=== PATIENT | female | born 1970 | race American Indian/Alaskan Native ===

== ENCOUNTER 2021-05-17 23:01 | Emergency (ER) | payer OTHER, SELFPAY ==
[2021-05-17 23:05] VITALS: BP 156/89; PULSE 140; RESP 22; TEMP 36.7; O2SAT 97
--- NOTE | 2021-05-17 23:08 | DI.RAD.S_ITS ---
PROCEDURE: XR CHEST 1V INDICATIONS: SUSPECTED SEPSIS TECHNIQUE: One view of the chest was acquired. COMPARISON: None. FINDINGS: Surgical changes and devices: None. Lungs and pleura: Mild streaky opacity at the right lung base. No pleural effusions or pneumothorax. Mediastinum: Mediastinal contours appear normal. Heart size is normal. Bones and chest wall: No suspicious bony lesions. Overlying soft tissues appear unremarkable. IMPRESSION: Mild streaky opacity at the right lung base. This could represent pneumonia, aspiration, or atelectasis. Dictated by: Ladarius Huntley M.D. on 05/17/2021 at 23:40 Approved by: Ladarius Huntley M.D. on 05/17/2021 at 23:41
--- NOTE | 2021-05-17 23:31 | ED_ITS ---
HPI - Fever General Chief Complaint: Fever Stated Complaint: TIRED BODY ACHES HEADACHES Time Seen by Provider: 05/17/21 23:22 Source: patient Mode of arrival: Ambulatory Limitations: no limitations History of Present Illness HPI Narrative: This is a 51-year-old vaccinated for coronavirus female with complaint of hot and cold sensation with sweats, some shortness of breath than bilateral rib pain. Patient denies any anterior chest pain. She denies any nausea or vomiting. She has had some soft but denies any bright red blood or melena. She denies any abdominal or flank pain. She still a bit of headache and some muscle aches as well. She denies dysuria urgency or frequency she denies rash or skin changes. She denies any past medical issues she takes vitamin-D, calcium and a daily allergy pill she had cholecystectomy in approximately 2014. Denies any allergies to medications. No tobacco, alcohol or illicit. She follows at the [facility] with Dr. Schmitz. She had her COVID vaccine in August. Related Data Previous Rx's Medication Instructions Recorded levofloxacin 750 mg tablet 750 mg PO DAILY 7 Days #7 tab 05/18/21 Allergies Allergy/AdvReac Type Severity Reaction Status Date / Time No Known Allergies Allergy Uncoded 11/22/17 12:13 Review of Systems Review of Systems ROS Unobtainable: All systems reviewed & are unremarkable except as noted in HPI and below Patient History Social History Smoking Status: Never smoker Smoking Status: Never smoker Exam Narrative Exam Narrative: GEN: well nourished, well appearing female, alert and oriented x 3, patient appears to be in mild distress. Patient is mildly diaphoretic. HEENT: Atraumatic, pupils are equal round reactive to light, extraocular movements are intact, nares are clear. No meningeal signs. HEART: Tachycardic but Regular rate and rhythm without murmur, clicks, rubs. Pulses are equal in upper and lower extremities. No JVD. No swelling bilateral lower extremities. LUNGS:Lungs clear to auscultation, no wheezes, rales, crackles, chest moves symmetrically, no tachypnea or accessory muscle use. ABD:bowel sounds normal, soft, non-tender, no guarding, rebound, rigidity, no masses noted, no hepatosplenomegaly :No CVA tenderness MSCL: Non-tender, full range of motion, normal gait NEURO:CN 2-12 intact, sensation normal SKIN: Rash, erythema or skin changes. Initial Vital Signs Initial Vital Signs: Vital Signs Temperature 98.0 F 05/17/21 23:05 Pulse Rate 140 H 05/17/21 23:05 Respiratory Rate 22 05/17/21 23:05 Blood Pressure 156/89 H 05/17/21 23:05 Pulse Oximetry 97 05/17/21 23:05 Scores qSOFA Altered Mental Status (GCS <15): No Respiratory rate greater than/equal to 22: Yes Systolic blood pressure less than or equal to 100: No qSOFA Total: 1 0-1 Not High Risk 1-3 High risk Course Orders Ordered: ED Orders 05/17/21 23:08 XR chest 1V Stat EKG-12 Lead Stat RT Consult Eval and Treat Now 05/17/21 23:30 COVID19 -Nasal swab/Pre-Proc Stat Complete Blood Count AUTO DIFF Stat Comprehensive Metabolic Panel Stat D Dimer Stat Lactate (Lactic Acid) Stat Lipase Stat NT-proBNP (BNP-Adult 18+) Stat Procalcitonin Stat Troponin & CK Cardiac Panel Stat Urine Microscopic Stat 05/17/21 23:47 Blood Culture Stat 05/18/21 00:07 CT angio chest PE protocol Stat 05/18/21 00:20 Urine Culture Stat 05/18/21 01:03 COVID19 - ADMIT (DOCUMENTATION SPECIALIST swab/PCR) Stat Discontinued Medications Sodium Chloride (Normal Saline 0.9%) 1,000 mls @ 1,000 mls/hr IV BOLUS ONE Stop: 05/18/21 00:07 Last Admin: 05/18/21 00:55 Dose: Not Given Documented by: LUIS MIGUEL Sodium Chloride (Normal Saline 0.9%) 2,177.25 mls @ 725.75 mls/hr 30 ml/kg infuse over 3 hr (2177.25 ml) IV NOW ONE Stop: 05/18/21 02:29 Last Infusion: 05/18/21 02:53 Dose: 0 mls/hr Documented by: LUIS MIGUEL Admin: 05/17/21 23:51 Dose: 725.75 mls/hr Documented by: GRETA Ceftriaxone Sodium 2,000 mg/ (Sodium Chloride) 100 mls @ 200 mls/hr IV NOW ONE Stop: 05/17/21 23:55 Last Infusion: 05/18/21 00:54 Dose: 0 mls/hr Documented by: LUIS MIGUEL Admin: 05/18/21 00:04 Dose: 200 mls/hr Documented by: LUIS MIGUEL Levofloxacin (Levaquin) 750 mg in 150 mls @ 100 mls/hr IV NOW ONE Stop: 05/18/21 01:23 Last Infusion: 05/18/21 02:42 Dose: 0 mls/hr Documented by: LUIS MIGUEL Infusion: 05/18/21 00:54 Dose: 100 mls/hr Documented by: LUIS MIGUEL Infusion: 05/18/21 00:45 Dose: 0 mls/hr Documented by: LUIS MIGUEL Admin: 05/18/21 00:44 Dose: 100 mls/hr Documented by: LUIS MIGUEL Vital Signs Vital signs: Vital Signs - 8 hr 05/17/21 23:05 05/18/21 00:10 05/18/21 00:32 Temperature 98.0 F Pulse Rate 140 H 129 H 128 H Respiratory Rate 22 Blood Pressure 156/89 H Pulse Oximetry 97 96 95 05/18/21 01:00 05/18/21 01:30 05/18/21 02:00 Temperature Pulse Rate 115 H 108 H 107 H Respiratory Rate 20 20 Blood Pressure Pulse Oximetry 98 96 98 05/18/21 02:30 05/18/21 03:00 05/18/21 03:24 Temperature 97.9 F Pulse Rate 101 H 98 H Respiratory Rate 21 21 Blood Pressure 151/91 H Pulse Oximetry 99 99 MDM - Fever Lab Data Result diagrams: 05/17/21 23:30 05/17/21 23:30 Labs: Lab Results 05/17/21 05/17/21 05/17/21 Range/Units 23:30 23:30 23:30 WBC 11.0 (4.5-11.0) X10^3/uL RBC 4.50 (4.0-5.2) X10^6/uL Hgb 11.9 L (12.0-16.0) g/dL Hct 35.7 L (36-46) % MCV 79.4 L (80-100) fL MCH 26.5 (26-34) PG MCHC 33.4 (30-36) % RDW 13.8 (11.6-14.8) % Plt Count 347 (150-400) X10^3/uL Neut % (Auto) 73.8 (50-75) % Lymph % (Auto) 15.5 L (25-40) % Lipscomb % (Auto) 9.6 (3-14) % Eos % (Auto) 0.6 L (2-4) % Baso % (Auto) 0.5 (0-2) % Neut # (Auto) 8100 H (7518-6276) /uL Lymph # (Auto) 1700 (3083-4735) /uL Lipscomb # (Auto) 1100 H (0-900) /uL Eos # (Auto) 100 (0-450) /uL Baso # (Auto) 100 (0-100) /uL D-Dimer (<230) ng/mL Sodium 139 (137-145) mmol/L Potassium 3.5 (3.4-5.1) mmol/L Chloride 108 H (98-107) mmol/L Carbon Dioxide 23 (22-32) mmol/L BUN 16 (7-17) mg/dL Creatinine 1.11 H (0.52-1.04) mg/dL Estimated GFR 51.6 L (>60) mL/min BUN/Creatinine Ratio 14.4 (6-22) Glucose 101 H (70-100) mg/dL Lactate 0.7 (0.7-2.1) mmol/L Calcium 8.7 (8.4-10.2) mg/dL Total Bilirubin 0.9 (0.2-1.3) mg/dL AST 28 (14-36) IU/L ALT 18 (<35) IU/L Alkaline Phosphatase 142 H (38-126) U/L Total Creatine Kinase (30-135) U/L CK-MB (CK-2) CK-MB (CK-2) Rel Index Troponin I (0.01-0.034) ng/mL NT-Pro-B Natriuret Pep (<125) pg/mL Total Protein 9.3 H (6.3-8.2) g/dL Albumin 4.2 (3.5-5.0) g/dL Globulin 5.1 H (1.7-4.1) g/dL Albumin/Globulin Ratio 0.8 L (1.0-2.8) Lipase 348 H (23-300) U/L Procalcitonin 0.31 (<0.5) ng/mL Urine RBC (0-5/HPF) Urine WBC (0-5/HPF) Ur Squamous Epith Cells (0-5/HPF) Urine Bacteria (None) Ur Culture Indicated? SARS-CoV-2 (PCR) (Negative) 05/17/21 05/17/21 05/17/21 Range/Units 23:30 23:30 23:30 WBC (4.5-11.0) X10^3/uL RBC (4.0-5.2) X10^6/uL Hgb (12.0-16.0) g/dL Hct (36-46) % MCV (80-100) fL MCH (26-34) PG MCHC (30-36) % RDW (11.6-14.8) % Plt Count (150-400) X10^3/uL Neut % (Auto) (50-75) % Lymph % (Auto) (25-40) % Lipscomb % (Auto) (3-14) % Eos % (Auto) (2-4) % Baso % (Auto) (0-2) % Neut # (Auto) (8037-4698) /uL Lymph # (Auto) (9328-7197) /uL Lipscomb # (Auto) (0-900) /uL Eos # (Auto) (0-450) /uL Baso # (Auto) (0-100) /uL D-Dimer 4902 H (<230) ng/mL Sodium (137-145) mmol/L Potassium (3.4-5.1) mmol/L Chloride (98-107) mmol/L Carbon Dioxide (22-32) mmol/L BUN (7-17) mg/dL Creatinine (0.52-1.04) mg/dL Estimated GFR (>60) mL/min BUN/Creatinine Ratio (6-22) Glucose (70-100) mg/dL Lactate (0.7-2.1) mmol/L Calcium (8.4-10.2) mg/dL Total Bilirubin (0.2-1.3) mg/dL AST (14-36) IU/L ALT (<35) IU/L Alkaline Phosphatase (38-126) U/L Total Creatine Kinase 26 L (30-135) U/L CK-MB (CK-2) TNP CK-MB (CK-2) Rel Index TNP Troponin I < 0.012 (0.01-0.034) ng/mL NT-Pro-B Natriuret Pep 140 H (<125) pg/mL Total Protein (6.3-8.2) g/dL Albumin (3.5-5.0) g/dL Globulin (1.7-4.1) g/dL Albumin/Globulin Ratio (1.0-2.8) Lipase (23-300) U/L Procalcitonin (<0.5) ng/mL Urine RBC (0-5/HPF) Urine WBC (0-5/HPF) Ur Squamous Epith Cells (0-5/HPF) Urine Bacteria (None) Ur Culture Indicated? SARS-CoV-2 (PCR) Negative (Negative) 05/18/21 05/18/21 Range/Units 00:20 01:03 WBC (4.5-11.0) X10^3/uL RBC (4.0-5.2) X10^6/uL Hgb (12.0-16.0) g/dL Hct (36-46) % MCV (80-100) fL MCH (26-34) PG MCHC (30-36) % RDW (11.6-14.8) % Plt Count (150-400) X10^3/uL Neut % (Auto) (50-75) % Lymph % (Auto) (25-40) % Lipscomb % (Auto) (3-14) % Eos % (Auto) (2-4) % Baso % (Auto) (0-2) % Neut # (Auto) (2604-2648) /uL Lymph # (Auto) (0624-2037) /uL Lipscomb # (Auto) (0-900) /uL Eos # (Auto) (0-450) /uL Baso # (Auto) (0-100) /uL D-Dimer (<230) ng/mL Sodium (137-145) mmol/L Potassium (3.4-5.1) mmol/L Chloride (98-107) mmol/L Carbon Dioxide (22-32) mmol/L BUN (7-17) mg/dL Creatinine (0.52-1.04) mg/dL Estimated GFR (>60) mL/min BUN/Creatinine Ratio (6-22) Glucose (70-100) mg/dL Lactate (0.7-2.1) mmol/L Calcium (8.4-10.2) mg/dL Total Bilirubin (0.2-1.3) mg/dL AST (14-36) IU/L ALT (<35) IU/L Alkaline Phosphatase (38-126) U/L Total Creatine Kinase (30-135) U/L CK-MB (CK-2) CK-MB (CK-2) Rel Index Troponin I (0.01-0.034) ng/mL NT-Pro-B Natriuret Pep (<125) pg/mL Total Protein (6.3-8.2) g/dL Albumin (3.5-5.0) g/dL Globulin (1.7-4.1) g/dL Albumin/Globulin Ratio (1.0-2.8) Lipase (23-300) U/L Procalcitonin (<0.5) ng/mL Urine RBC 0-1/hpf (0-5/HPF) Urine WBC 5-10/hpf H (0-5/HPF) Ur Squamous Epith Cells 0-1 /hpf (0-5/HPF) Urine Bacteria Moderate (10-30) H (None) Ur Culture Indicated? Specimen cultured SARS-CoV-2 (PCR) Negative (Negative) Point of Care Testing Test Results Negative Urine Dip Bedside Urine Glucose Negative Bedside Urine Bilirubin - Negative Bedside Urine Ketone - Negative Urine Specific Adrian 1.010 Bedside Urine Occult Blood ++ Bedside Urine pH 7.0 Bedside Urine Protein - Negative Bedside Urine Urobilinogen +/- 1mg Bedside Urine Nitrite - Negative Bedside Urine Leukocytes + 70 Esterase Imaging Data Chest x-ray: Radiologist's Impression: [address] [id number] XRay Report Signed Patient: Ritu Johnson MR#: [id number] : 1970 Acct:[id number] Age/Sex: 51 / F Date of Service: 05/17/21 Loc: ED Accession Number: [id number] ?? Procedure: XR chest 1V Ordering Provider: Rosa Finnegan D.O. PROCEDURE:? XR CHEST 1V ? INDICATIONS:? SUSPECTED SEPSIS ? TECHNIQUE:? One view of the chest was acquired.? ? COMPARISON:? None. ? FINDINGS:? ? Surgical changes and devices:? None.? ? Lungs and pleura:? Mild streaky opacity at the right lung base.? No pleural effusions or pneumothorax.? ? Mediastinum:? Mediastinal contours appear normal.? Heart size is normal.? ? Bones and chest wall:? No suspicious bony lesions.? Overlying soft tissues appear unremarkable.? ? IMPRESSION:? Mild streaky opacity at the right lung base.? ? This could represent pneumonia, aspiration, or atelectasis. ? ? Dictated by: Ladarius Huntley M.D. on 05/17/2021 at 23:40 ? ? Approved by: Ladarius Huntley M.D. on 05/17/2021 at 23:41?? CT scan - chest: Radiologist's Impression: [address] [address] [address] Scan Report Signed Patient: Ritu Johnson MR#: [id number] : 1970 Acct:[id number] Age/Sex: 51 / F Date of Service: 05/18/21 Loc: ED Accession Number: [id number] ?? Procedure: CT angio chest PE protocol Ordering Provider: Rosa Finnegan D.O. PROCEDURE:? CT ANGIO CHEST PE PROTOCOL ? INDICATIONS:? tired, body ache, tachycardia, critical D-dimer ? TECHNIQUE:? After the administration of intravenous contrast, 2 mm thick sections acquired from the pulmonary apices to the posterior costophrenic angles.? 3-dimensional maximum intensity projection (MIP) coronal and sagittal reformats were then acquired through the t horax.? For radiation dose reduction, the following was used:? automated exposure control, adjustment of mA and/or kV according to patient size.? ? COMPARISON:? None. ? FINDINGS:? Image quality:? Excellent.? ? Pulmonary arteries:? Pulmonary arteries are normal in size, and demonstrate no intraluminal filling defects to suggest central pulmonary embolism.? ? Lungs and pleura:? Right upper lobe subpleural medial pulmonary nodule measuring 0.4 cm.? Right upper lobe lateral pulmonary nodule measuring 0.4 cm, (5/60).? A few small pulmonary cysts.? Mild ground-glass opacity most pronounced at the left lower lobe.? No pleural effusions or pneumothorax.? Central and peripheral airways are patent.? ? Mediastinum:? Heart size is normal, without pericardial effusion.? No mediastinal or hilar adenopathy.? Thoracic aorta is normal in caliber and enhancement.? Esophagus is normal in caliber, without hiatal hernia.? ? Bones and chest wall:? No suspicious bony lesions.? Ribs and thoracic spine appear intact throughout.? Right thyroid nodule measuring approximately 1.3 cm, (11/27).? No axillary or supraclavicular adenopathy.? ? Abdomen:? Post cholecystectomy.? Diverticulosis.? Small retroperitoneal nodes.? Suspect 1 cm left adrenal myelolipoma, ().? Visualized upper abdominal solid organs appear normal in the early arterial phase of enhancement.? ? IMPRESSION:? 1. No pulmonary embolism. ? 2. Mild ground-glass opacity most pronounced in the left lower lobe.? This could represent a low-grade infectious/inflammatory etiology.? Atelectasis could have a similar appearance. ? 3. Right thyroid nodule measuring 1.3 cm. Recommend dedicated thyroid ultrasound on a nonemergent basis. ? 4. Suspect incidental 1 cm left adrenal myelolipoma.? Dictated by: Ladarius Huntley M.D. on 05/18/2021 at 0:52 ? ? Approved by: Ladarius Huntley M.D. on 05/18/2021 at 0:59? ECG Data Attestation: I personally reviewed and interpreted this ECG as follows: Prior ECG tracings: not available for review Interpretation: Sinus tachycardia rate of 141 MD 114 QRS 84 and QTC of 453. No acute ST elevation depression appreciated. Patient does appear to have P waves with all QRS. No priors for comparison. MDM Narrative Medical decision making narrative: This is a 51-year-old female comes with complaint of headache, myalgias, sweatiness and hot and cold and is noted to be tachycardic at 140. upon arrival. Patient is persistently in sinus tach which slowly improved after 30 cc/kilos fluid bolus. Her labs are otherwise reassuring the exception of a significant elevated D-dimer.. Chest x-ray shows possible pneumonia. Angio for PE was obtained and shows pneumonia but no PE or other emergent changes. There is notation of a thyroid nodule small pulmonary nodule and adrenal nodule and this was all shared with the patient. Patient has continued to improve and had reassuring vitals here in the department. She re ceived dose of IV antibiotics and after discussion patient feels much better plan to DC home on oral antibiotics with strict return precautions. All questions answered. Patient encouraged to return at any time if she is feeling worse. Discharge Plan Departure Patient Disposition: Home Clinical Impression: Pneumonia, Pulmonary nodule, Thyroid nodule, Adrenal myelolipoma Instructions: DI for Pneumonia -- Adult Activity Restrictions/Additional Instructions: You appear to have pneumonia or an infection in your lungs today. Your heart rate was quite elevated when you arrived but has improved with fluids. Your labs otherwise are reassuring. Your imaging does a nodule or your thyroid and you should have an US of your thyroid gland, ask your primary care physician to order this. You do have a small pulmonary nodule as well that is 0.4cm and spot your on your left adrenal gland, share this information with your physician. Take antibiotics until gone, start them tomorrow. Prescription was sent to [facility]. You may take Tylenol up to a 1000 mg every 8 hours and or ibuprofen up to 800 mg every 8 hours for fevers. Fever should start to resolve in the next 24-48 hours. You can use your albuterol 1-2 puffs every 4 hours for shortness of breath or wheezing. Please return if you are having persistent fevers, recurrent fast heartbeat, lightheadedness or passing out, new chest pain or shortness of breath, difficulty breathing, persistent vomiting, black or bloody stools or other new or concerning symptoms, Prescriptions: New levofloxacin 750 mg tablet 750 mg PO DAILY 7 Days Qty: 7 RF: 0
[2021-05-17 23:40] LABS: Add Manual Diff / Slide Review NO; Basophils Absolute Auto 100 /uL (0-100); Basophils Percent Auto 0.5 % (0-2); Eosinophils Absolute Auto 100 /uL (0-450); Eosinophils Percent Auto 0.6 % (2-4); Hematocrit 35.7 % (36-46); Hemoglobin 11.9 g/dL (12.0-16.0); Lymphocytes Absolute Auto 1700 /uL (1100-4500); Lymphocytes Percent Auto 15.5 % (25-40); Mean Corpuscular HGB Conc 33.4 % (30-36); Mean Corpuscular Hemoglobin 26.5 PG (26-34); Mean Corpuscular Volume 79.4 fL (80-100); Monocytes Absolute Auto 1100 /uL (0-900); Monocytes Percent Auto 9.6 % (3-14); Neutrophils Absolute Auto 8100 /uL (1500-7000); Neutrophils Percent Auto 73.8 % (50-75); Platelet Count 347 X10^3/uL (150-400); Red Cell Distribution Width 13.8 % (11.6-14.8)
[2021-05-17 23:51] LABS: Alanine Aminotransferase 18 IU/L (<35); Albumin 4.2 g/dL (3.5-5.0); Albumin Globulin Ratio 0.8 (1.0-2.8); Alkaline Phosphatase 142 U/L (38-126); Aspartate Aminotransferase 28 IU/L (14-36); BUN Creatinine Ratio 14.4 (6-22); Bilirubin Total 0.9 mg/dL (0.2-1.3); Blood Urea Nitrogen 16 mg/dL (7-17); Calcium 8.7 mg/dL (8.4-10.2); Carbon Dioxide 23 mmol/L (22-32); Chloride 108 mmol/L (98-107); Estimated Glomerular Filt Rate 51.6 mL/min (>60); Globulin 5.1 g/dL (1.7-4.1); Glucose 101 mg/dL (70-100); HEMOLYSIS < 15 (0-50); Lipase 348 U/L (23-300); Potassium 3.5 mmol/L (3.4-5.1); Sodium 139 mmol/L (137-145); Total Protein 9.3 g/dL (6.3-8.2)
[2021-05-17] MEDS: SODIUM CHLORIDE 0.9% 2,177.25 ML 725.75 ML IV (23:51)
[2021-05-17 23:52] LABS: COVID19 -Nasal RAPID Negative (Negative)
[2021-05-17 23:56] LABS: Creatine Kinase 26 U/L (30-135)
[2021-05-18] VITALS (8 sets, daily range): BP systolic 151; BP diastolic 91; PULSE 98–129; RESP 20–21; TEMP 36.6; O2SAT 95–99
[2021-05-18 00:01] LABS: D Dimer 4902 ng/mL (<230)
[2021-05-18] MEDS: cefTRIAXone 2,000 MG in SODIUM CHLORIDE 0.9% 100 ML 200 ML IV (00:04)
--- NOTE | 2021-05-18 00:07 | DI.CT.S_ITS ---
PROCEDURE: CT ANGIO CHEST PE PROTOCOL INDICATIONS: tired, body ache, tachycardia, critical D-dimer TECHNIQUE: After the administration of intravenous contrast, 2 mm thick sections acquired from the pulmonary apices to the posterior costophrenic angles. 3-dimensional maximum intensity projection (MIP) coronal and sagittal reformats were then acquired through the thorax. For radiation dose reduction, the following was used: automated exposure control, adjustment of mA and/or kV according to patient size. COMPARISON: None. FINDINGS: Image quality: Excellent. Pulmonary arteries: Pulmonary arteries are normal in size, and demonstrate no intraluminal filling defects to suggest central pulmonary embolism. Lungs and pleura: Right upper lobe subpleural medial pulmonary nodule measuring 0.4 cm. Right upper lobe lateral pulmonary nodule measuring 0.4 cm, (5/60). A few small pulmonary cysts. Mild ground-glass opacity most pronounced at the left lower lobe. No pleural effusions or pneumothorax. Central and peripheral airways are patent. Mediastinum: Heart size is normal, without pericardial effusion. No mediastinal or hilar adenopathy. Thoracic aorta is normal in caliber and enhancement. Esophagus is normal in caliber, without hiatal hernia. Bones and chest wall: No suspicious bony lesions. Ribs and thoracic spine appear intact throughout. Right thyroid nodule measuring approximately 1.3 cm, (4/16). No axillary or supraclavicular adenopathy. Abdomen: Post cholecystectomy. Diverticulosis. Small retroperitoneal nodes. Suspect 1 cm left adrenal myelolipoma, (4/132). Visualized upper abdominal solid organs appear normal in the early arterial phase of enhancement. IMPRESSION: 1. No pulmonary embolism. 2. Mild ground-glass opacity most pronounced in the left lower lobe. This could represent a low-grade infectious/inflammatory etiology. Atelectasis could have a similar appearance. 3. Right thyroid nodule measuring 1.3 cm. Recommend dedicated thyroid ultrasound on a nonemergent basis. 4. Suspect incidental 1 cm left adrenal myelolipoma. Dictated by: Ladarius Huntley M.D. on 05/18/2021 at 0:52 Approved by: Ladarius Huntley M.D. on 05/18/2021 at 0:59
[2021-05-18 00:08] LABS: Procalcitonin 0.31 ng/mL (<0.5)
[2021-05-18 00:09] LABS: NT-proBNP (BNP-Adult 18+) 140 pg/mL (<125); Troponin I < 0.012 ng/mL (0.01-0.034)
[2021-05-18 00:18] LABS: Lactate (Lactic Acid) 0.7 mmol/L (0.7-2.1)
[2021-05-18 00:43] LABS: RBC Urine 0-1/HPF (0-5/HPF)
[2021-05-18 00:44] LABS: Bacteria Urine Moderate (10-30); Culture Indicated Urine Specimen Cultured; Squamous Epithelial Cell Urine 0-1 /HPF (0-5/HPF); WBC Urine 5-10/HPF (0-5/HPF)
[2021-05-18] MEDS: levoFLOXacin 750 MG/150 ML PIGGYBACK 100 MG IV (00:44)
[2021-05-18 02:08] LABS: COVID19 - ADMIT (NP swab/PCR) Negative (Negative)
== END 2021-05-18 03:27 | disposition home or self-care (01) ==
PROVIDERS: Emergency Provider Emergency Medicine
DX: J18.9 Pneumonia, unspecified organism (principal); R91.1 Solitary pulmonary nodule; E04.1 Nontoxic single thyroid nodule; D17.79 Benign lipomatous neoplasm of other sites; R06.02 Shortness of breath; R07.81 Pleurodynia; R00.0 Tachycardia, unspecified; Z20.822 Contact with and (suspected) exposure to COVID-19
CPT/HCPCS: 36415; 71045; 71275; 80053; 81003; 81015; 81025; 82550; 83605; 83690; 83880; 84145; 84484; 85025; 85379; 87040; 87077; 87086; 87186; 87635; 93005; 96365; 96366; 96367; 99284; C9803; J0696; J1956; Q9967

== ENCOUNTER → 2021-06-03 08:15 | Outpatient (CLI) | payer OTHER, SELFPAY ==
--- NOTE | 2021-06-03 | DI.US.S_ITS ---
PROCEDURE: US THYROID INDICATIONS: FOLLOW UP CT 05/18/21 TECHNIQUE: Real-time scanning was performed of the thyroid gland, with image documentation. COMPARISON: [facility], CT, CT ANGIO CHEST PE PROTOCOL, 05/18/2021, 0:24. FINDINGS: Right: Thyroid lobe measures 5.0 x 1.9 x 2.3 cm, and is homogeneous in echotexture. Prominent right neck lymph node which has normal katherine morphology measuring up to 1.1 cm in maximal short axis. Left: Thyroid lobe measures 5.5 x 1.8 x 1.3 cm, and is homogenous in echotexture. Morphologically normal appearing lymph node measuring up to 1.0 cm in maximal short axis. Isthmus: 3.9 mm thick. Nodule number: 1 Location: Right mid Size: 1.5 x 1.2 x 1.1 cm. Composition: Solid Echogenicity: Hypoechoic Shape: wider than tall. Margins: Smooth Echogenic foci: None Total points: 4 ACR TI-RADS category: Moderately suspicious Nodule number: 2 Location: Right inferior Size: 1.4 x 1.0 x .7 cm. Composition: Solid Echogenicity: Hypoechoic Shape: wider than tall. Margins: Smooth Echogenic foci: None Total points: 4 ACR TI-RADS category: Moderately suspicious IMPRESSION: 1. Right thyroid nodules as above. Recommend continued followup ultrasound as detailed below. 2 . Mildly enlarged bilateral neck lymph nodes. Recommend clinical correlation and management. ACR TI-RADS definitions and recommendations: TI-RADS 1 (benign): 0 points. FNA not needed. TI-RADS 2 (not suspicious): 2 points. FNA not needed. TI-RADS 3 (mildly suspicious): 3 points. * FNA if 2.5 cm or larger, follow up if 1.5 cm or larger (at 1, 3, and 5 years). TI-RADS 4 (moderately suspicious): 4-6 points. * FNA if 1.5 cm or larger, follow up if 1 cm or larger (at 1, 2, 3, and 5 years). TI-RADS 5 (highly suspicious): 7 points or more. * FNA if 1 cm or larger, follow up if 0.5 cm or larger (every year for 5 years). Dictated by: Dwayne SANCHES Interpreted: Donovan Montero MD on 06/03/2021 at 13:30 Transcribed by: LUCRECIA on 06/03/2021 at 13:34 Approved by: Donovan Montero M.D. on 06/03/2021 at 15:30
== END ==
PROVIDERS: PCP Family Medicine; Referring Provider Family Medicine; Visit Provider Family Medicine
DX: E04.2 Nontoxic multinodular goiter (principal); R59.0 Localized enlarged lymph nodes
CPT/HCPCS: 76536

== ENCOUNTER → 2021-06-07 11:49 | Outpatient (CLI) | payer OTHER, SELFPAY ==
--- NOTE | 2021-06-07 | DI.MG.S_ITS ---
BILATERAL DIGITAL SCREENING MAMMOGRAM 3D/2D WITH CAD: 06/07/2021 CLINICAL: Routine screening. Baseline by default. Family history of breast cancer. No prior exams were available for comparison. There are scattered fibroglandular elements in both breasts. Current study was also evaluated with a Computer Aided Detection (CAD) system. There are benign vascular calcifications in the right breast. No significant masses, calcifications, or other findings are seen in either breast. IMPRESSION: BENIGN There is no mammographic evidence of malignancy. A 1 year screening mammogram is recommended. This exam was interpreted at Station ID: [id number]. NOTE: For mammograms, a report in lay terms will be sent to the patient. Approximately 15% of breast malignancies will not be visualized mammographically. In the management of a palpable breast mass, a negative mammogram must not discourage biopsy of a clinically suspicious lesion. Electronically Signed By: Kaye tanner/lavinia:06/07/2021 12:29:52 letter sent: Normal Exam ACR BI-RADS Category 2: Benign Finding(s) 3342F
== END ==
PROVIDERS: PCP Family Medicine; Referring Provider Family Medicine; Visit Provider Family Medicine
DX: Z12.31 Encounter for screening mammogram for malignant neoplasm of breast (principal); Z80.3 Family history of malignant neoplasm of breast
CPT/HCPCS: 77063; 77067

== ENCOUNTER 2022-06-12 10:56 | Emergency (ER) | payer OTHER, SELFPAY ==
[2022-06-12] VITALS (15 sets, daily range): BP systolic 112–146; BP diastolic 69–91; PULSE 88–117; RESP 12–24; TEMP 37.9; O2SAT 94–100; BMI 29.2
--- NOTE | 2022-06-12 11:22 | DI.RAD.S_ITS ---
PROCEDURE: XR CHEST 1V INDICATIONS: suspected sepsis TECHNIQUE: One view of the chest was acquired. COMPARISON: [facility], CR, XR CHEST 1V, 05/17/2021, 23:22. FINDINGS: Surgical changes and devices: None. Lungs and pleura: Lungs are clear. No pleural effusions or pneumothorax. Mediastinum: Mediastinal contours appear normal. Heart size is normal. Bones and chest wall: No suspicious bony lesions. Overlying soft tissues appear unremarkable. IMPRESSION: No acute cardiopulmonary abnormality. Dictated by: Ladarius Huntley M.D. on 06/12/2022 at 10:45 Approved by: Ladarius Huntley M.D. on 06/12/2022 at 10:46
--- NOTE | 2022-06-12 11:25 | ED_ITS ---
HPI - Sepsis General Chief Complaint: Upper Respiratory Symptoms Mode of arrival: Ambulatory Source: patient Limitations: no limitations Evaluation Sepsis Screen: Possible Sepsis Risk Sepsis Infection Criteria Present: Suspected New Infection Narrative: 52-year-old female nonsmoker without significant medical history presents with her in the chief complaint of a few days of feeling unwell including fever as high as 102 shaking chills, bilateral ear pain and some nasal congestion. She has some discomfort on the right side of her ribs. She states this feels like prior pneumonia. She denies any sore throat but does have some ear pain as noted. She denies chest pain or any significant shortness of breath. She is had no nausea, vomiting or diarrhea. She denies abdominal pain, dysuria, frequency or urgency. Review of Systems Review of Systems Narrative: GENERAL: See HPI HEENT: See HPI RESPIRATORY: See HPI CARDIOVASCULAR: Denies chest pain, palpitations, orthopnea, edema, GASTROINTESTINAL: Denies nausea, vomiting, abdominal pain, diarrhea, c onstipation, melena. : Denies dysuria, frequency, incontinence, hematuria, urinary retention. MUSCULOSKELETAL: denies weakness, joint pain, or bony pain SKIN: Denies rash, skin lesions, or other NEUROLOGIC: Denies weakness, headache, numbness, change in speech, confusion, seizures, incoordination. PSYCHIATRIC: No concerning psychosocial issues. 12 point review of systems is negative except for those stated above Patient History Social History Smoking Status: Never smoker Smoking Status: Never smoker Exam Narrative Exam Narrative: GENERAL: [52] year old patient appears stated age. Well-developed patient, in mild distress. HEAD: Atraumatic. Normocephalic. EYES: Pupils equal round and reactive. Extraocular motions intact. No scleral icterus. No injection or drainage. ENT: Nose without bleeding, purulent drainage. Throat without erythema, tonsillar hypertrophy or exudate. Airway patent. Moist mucous membranes NECK: Trachea midline. Non tender CARDIOVASCULAR: Tachycardic but regular rhythm without murmurs, gallops, or rubs. RESPIRATORY: Clear to auscultation. Breath sounds equal bilaterally. No wheezes, rales, or rhonchi. GASTROINTESTINAL: Abdomen soft, non-tender, nondistended. EXTREMITIES: No edema or joint tenderness. BACK: Nontender without deformity or crepitance. No flank tenderness. NEURO: AOx3. SKIN: No rash or erythema of visible areas Initial Vital Signs Initial Vital Signs: Vital Signs Temperature 100.3 F H 06/12/22 11:15 Pulse Rate 117 H 06/12/22 11:15 Respiratory Rate 20 06/12/22 11:15 Blood Pressure 127/74 06/12/22 11:15 Pulse Oximetry 98 06/12/22 11:15 Oxygen Delivery Method 06/12/22 11:15 Course Orders Ordered: ED Orders 06/12/22 11:22 XR chest 1V Stat EKG-12 Lead Stat RT Consult Eval and Treat NOW 06/12/22 11:47 Covid-19 + FLU A/B + RSV - PCR Stat 06/12/22 12:00 Complete Blood Count AUTO DIFF Stat Comprehensive Metabolic Panel Stat Lactate (Lactic Acid) Stat Lipase Stat Procalcitonin Stat 06/12/22 12:10 Blood Culture Stat 06/12/22 14:25 Urine Culture Stat Urine Microscopic Stat 06/12/22 14:53 CT abdomen pelvis w con Stat 06/12/22 15:14 CT angio chest PE protocol Stat Discontinued Medications Sodium Chloride (Normal Saline 0.9%) 1,000 mls @ 1,000 mls/hr IV BOLUS ONE Stop: 06/12/22 12:21 Last Admin: 06/12/22 14:52 Dose: Not Given Documented By: ANAID Sodium Chloride (Normal Saline 0.9%) 1,973.13 mls @ 657.71 mls/hr 30 ml/kg infuse over 3 hr (1973.13 ml) IV NOW ONE Stop: 06/12/22 14:25 Last Admin: 06/12/22 12:33 Dose: 657.71 mls/hr Documented By: ANAID Ceftriaxone Sodium 2,000 mg/ (Sodium Chloride) 100 mls @ 200 mls/hr IV NOW ONE Stop: 06/12/22 11:27 Last Infusion: 06/12/22 13:05 Dose: 0 mls/hr Documented By: Admin: 06/12/22 12:34 Dose: 200 mls/hr Documented By: ANAID Ketorolac Tromethamine (Ketorolac 30 Mg/Ml Vial) 15 mg IV NOW ONE Stop: 06/12/22 11:28 Last Admin: 06/12/22 12:29 Dose: 15 mg Documented By: ANAID Vital Signs Vital signs: Vital Signs - 8 hr 06/12/22 11:15 06/12/22 11:51 06/12/22 11:53 Temperature 100.3 F H Pulse Rate 117 H 115 H Respiratory Rate 20 Blood Pressure 127/74 125/80 Pulse Oximetry 98 97 Oxygen Delivery Method Room Air 06/12/22 11:53 06/12/22 12:00 06/12/22 12:00 Temperature Pulse Rate 114 H 112 H Respiratory Rate 19 20 Blood Pressure 129/80 Pulse Oximetry 97 95 Oxygen Delivery Method 06/12/22 12:30 06/12/22 12:30 06/12/22 13:00 Temperature Pulse Rate 101 H Respiratory Rate 16 Blood Pressure 125/71 121/72 Pulse Oximetry 94 Oxygen Delivery Method 06/12/22 13:00 06/12/22 13:30 06/12/22 13:30 Temperature Pulse Rate 100 H 92 H Respiratory Rate 17 17 Blood Pressure 119/69 Pulse Oximetry 96 99 Oxygen Delivery Method 06/12/22 14:00 06/12/22 14:00 06/12/22 14:23 Temperature Pulse Rate 90 Respiratory Rate 15 Blood Pressure 112/73 119/77 Pulse Oximetry 99 Oxygen Delivery Method 06/12/22 14:23 06/12/22 14:30 06/12/22 14:30 Temperature Pulse Rate 90 88 Respiratory Rate 17 24 Blood Pressure 117/73 Pulse Oximetry 95 100 Oxygen Delivery Method 06/12/22 15:00 06/12/22 15:00 Temperature Pulse Rate 92 H Respiratory Rate 12 Blood Pressure 146/91 H Pulse Oximetry 100 Oxygen Delivery Method Sepsis Guideline Criteria Level 1 - Infection Sepsis Infection Criteria Present: Suspected New Infection Treatment Initiated Antibiotics:: IV antimicrobials will be initiated as soon as possible after recognition of sepsis state and within one hour for both sepsis and septic shock. MDM - Sepsis Lab Data Result diagrams: 06/12/22 12:00 06/12/22 12:00 Labs: Lab Results 06/12/22 06/12/22 06/12/22 Range/Units 11:47 12:00 12:00 WBC 14.5 H (4.5-11.0) X10^3/uL RBC 4.46 (4.0-5.2) X10^6/uL Hgb 11.8 L (12.0-16.0) g/dL Hct 34.7 L (36-46) % MCV 77.8 L (80-100) fL MCH 26.4 (26-34) PG MCHC 33.9 (30-36) % RDW 14.5 (11.6-14.8) % Plt Count 300 (150-400) X10^3/uL Neut % (Auto) 83.2 H (50-75) % Lymph % (Auto) 11.8 L (25-40) % [place] % (Auto) 4.8 (3-14) % Eos % (Auto) 0.0 L (2-4) % Baso % (Auto) 0.2 (0-2) % Neut # (Auto) 62346 H (9944-4918) /uL Lymph # (Auto) 1700 (4380-0157) /uL [place] # (Auto) 700 (0-900) /uL Eos # (Auto) 0 (0-450) /uL Baso # (Auto) 0 (0-100) /uL Sodium 135 L (137-145) mmol/L Potassium 3.9 (3.4-5.1) mmol/L Chloride 105 (98-107) mmol/L Carbon Dioxide 21 L (22-32) mmol/L BUN 16 (7-17) mg/dL Creatinine 1.10 H (0.52-1.04) mg/dL Estimated GFR > 60 (>60) mL/min BUN/Creatinine Ratio 14.5 (6-22) Glucose 101 H (70-100) mg/dL Lactate (0.7-2.1) mmol/L Calcium 8.5 (8.4-10.2) mg/dL Total Bilirubin 0.6 (0.2-1.3) mg/dL AST 21 (14-36) IU/L ALT 20 (<35) IU/L Alkaline Phosphatase 120 (38-126) U/L Total Protein 8.5 H (6.3-8.2) g/dL Albumin 3.6 (3.5-5.0) g/dL Globulin 4.9 H (1.7-4.1) g/dL Albumin/Globulin Ratio 0.7 L (1.0-2.8) Lipase 198 (23-300) U/L Procalcitonin 0.34 (<0.5) ng/mL Urine RBC (0-5/HPF) Urine WBC (0-5/HPF) Ur Squamous Epith Cells (0-5/HPF) Urine Bacteria (None) Ur Culture Indicated? SARS-CoV-2 (PCR) Negative (Negative) Influenza A (RT-PCR) Flu a negative (NEGATIVE) Influenza B (RT-PCR) Flu b negative (NEGATIVE) RSV (PCR) Negative (Negative) 06/12/22 06/12/22 Range/Units 12:00 14:25 WBC (4.5-11.0) X10^3/uL RBC (4.0-5.2) X10^6/uL Hgb (12.0-16.0) g/dL Hct (36-46) % MCV (80-100) fL MCH (26-34) PG MCHC (30-36) % RDW (11.6-14.8) % Plt Count (150-400) X10^3/uL Neut % (Auto) (50-75) % Lymph % (Auto) (25-40) % [place] % (Auto) (3-14) % Eos % (Auto) (2-4) % Baso % (Auto) (0-2) % Neut # (Auto) (0118-5589) /uL Lymph # (Auto) (7747-5528) /uL [place] # (Auto) (0-900) /uL Eos # (Auto) (0-450) /uL Baso # (Auto) (0-100) /uL Sodium (137-145) mmol/L Potassium (3.4-5.1) mmol/L Chloride (98-107) mmol/L Carbon Dioxide (22-32) mmol/L BUN (7-17) mg/dL Creatinine (0.52-1.04) mg/dL Estimated GFR (>60) mL/min BUN/Creatinine Ratio (6-22) Glucose (70-100) mg/dL Lactate 0.8 (0.7-2.1) mmol/L Calcium (8.4-10.2) mg/dL Total Bilirubin (0.2-1.3) mg/dL AST (14-36) IU/L ALT (<35) IU/L Alkaline Phosphatase (38-126) U/L Total Protein (6.3-8.2) g/dL Albumin (3.5-5.0) g/dL Globulin (1.7-4.1) g/dL Albumin/Globulin Ratio (1.0-2.8) Lipase (23-300) U/L Procalcitonin (<0.5) ng/mL Urine RBC 0-1/hpf (0-5/HPF) Urine WBC 0-1/hpf (0-5/HPF) Ur Squamous Epith Cells 0-1 /hpf (0-5/HPF) Urine Bacteria None seen (None) Ur Culture Indicated? Cult not indicated SARS-CoV-2 (PCR) (Negative) Influenza A (RT-PCR) (NEGATIVE) Influenza B (RT-PCR) (NEGATIVE) RSV (PCR) (Negative) Urine Dip Bedside Urine Glucose Negative Bedside Urine Bilirubin - Negative Bedside Urine Ketone - Negative Urine Specific [place] 1.005 Bedside Urine Occult Blood - Negative Bedside Urine pH 6.0 Bedside Urine Protein +/- 15 Bedside Urine Urobilinogen - Negative Bedside Urine Nitrite - Negative Bedside Urine Leukocytes - Negative Esterase Imaging Data Chest x-ray: Radiologist's Impression: [address] [address]OVhm ReportSigned Patient: Fortino Ta JMR#: [id number]: 7Acct:[id number]/Sex: 64 / MDate of Service: 06/12/22Loc: EDAccession Number: [id number] Procedure: XR finger LT min 2V Ordering Provider: Christofer Matias D.O. PROCEDURE: XR FINGER LT MIN 2V INDICATIONS: post reduction TECHNIQUE: AP hand, 2 views of the 2nd finger(s) acquired. COMPARISON: [facility] , XR FINGER LT MIN 2V, 06/12/2022, 10:00. FINDINGS: Bones: Relocation of the 2nd digit PIP joint. Small osseous fragment at the proximal phalangeal head. No fracture is appreciated at the middle phalanx. No suspicious bony lesions. Soft tissues: No suspicious soft tissue calcifications. IMPRESSION: Relocation of the 2nd digit PIP joint. Possible fracture at the 2nd digit proximal phalangeal head. Dictated by: Ladarius Huntley M.D. on 06/12/2022 at 9:51 Approved by: Ladarius Huntley M.D. on 06/12/2022 at 9:54 CT scan - chest: Radiologist's Impression: Close Chest CTA (Signed) Call,06/12/22 Abdomen/Pelvis CT (Signed) Call,06/12/22 Chest X-Ray (Signed) Call,06/12/22 Launch?Image [address] [address] [address] Scan Report Signed Patient: Ritu Johnson MR#: [id number] : 1970 Acct:[id number] Age/Sex: 52 / F Date of Service: 06/12/22 Loc: ED Accession Number: [id number] ?? Procedure: CT angio chest PE protocol Ordering Provider: Christofer Matias D.O. PROCEDURE:? CT ANGIO CHEST PE PROTOCOL ? INDICATIONS:? chest pain, SOB, sepsis, critical Dimer ? TECHNIQUE:? After the administration of intravenous contrast, 2 mm thick sections acquired from the pulmonary apices to the posterior costophrenic angles.? 3-dimensional maximum intensity projection (MIP) coronal and sagittal reformats were then acquired through the thorax.? For radiation dose reduction, the following was used:? automated exposure control, adjustment of mA and/or kV according to patient size.? ? COMPARISON:? [facility], CT, CT ANGIO CHEST PE PROTOCOL, 05/18/2021, 0:24. ? FINDINGS:? Image quality:? Excellent.? ? Pulmonary arteries:? Pulmonary arteries are normal in size, and demonstrate no intraluminal filling defects to suggest central pulmonary embolism.? ? Lungs and pleura:? There is scattered opacity in the lungs most pronounced in the upper lobes.? This is minimally increased compared to 2020. Several areas are stable.? There are a few pulmonary cysts.? No pleural effusions or pneumothorax.? Central and peripheral airways are patent.? ? Mediastinum:? Heart size is normal, without pericardial effusion.? No mediastinal or hilar adenopathy.? Thoracic aorta is normal in caliber and enhancement.? Esophagus is normal in caliber, without hiatal hernia.? ? Bones and chest wall:? No suspicious bony lesions.? Ribs and thoracic spine appear intact throughout.? Thyroid gland is unchanged.? Possible subcentimeter right thyroid nodule.? No axillary or supraclavicular adenopathy.? ? Abdomen:? Visualized upper abdominal solid organs appear normal in the early arterial phase of enhancement.? Post cholecystectomy.? Left adrenal nodule measuring 1.2 cm, (), unchanged.? This measures less than 10 Hounsfield units and is consi stent with a benign adenoma.? ? IMPRESSION:? 1. No pulmonary embolism. ? 2. Mild patchy airspace opacity which is slightly increased compared to 2020. This could represent an infectious/inflammatory etiology.? ? 3. No pleural effusion. ? 4. Small left benign adrenal adenoma. ? ? ? Dictated by: Ladarius Huntley M.D. on 06/12/2022 at 15:00 ? ? Approved by: Ladarius Huntley M.D. on 06/12/2022 at 15:07 ? CT scan - abdomen/pelvis: Radiologist's Impression: Close Chest CTA (Signed) Call,Ladarius - 06/12/22 Abdomen/Pelvis CT (Signed) Call,Ladarius 06/12/22 Chest X-Ray (Signed) Call,Ladarius 06/12/22 Launch?[place] [address] CT Scan Report Signed Patient: Ritu Johnson MR#: [id number] : 1970 Acct:[id number] Age/Sex: 52 / F Date of Service: 06/12/22 Loc: Accession Number: [id number] ?? Procedure: CT angio chest PE protocol Ordering Provider: Christofer Matias D.O. PROCEDURE:? CT ANGIO CHEST PE PROTOCOL ? INDICATIONS:? chest pain, SOB, sepsis, critical Dimer ? TECHNIQUE:? After the administration of intravenous contrast, 2 mm thick sections acquired from the pulmonary apices to the posterior costophrenic angles.? 3-dimensional maximum intensity projection (MIP) coronal and sagittal reformats were then acquired through the thorax.? For radiation dose reduction, the following was used:? automated exposure control, adjustment of mA and/or kV according to patient size.? ? COMPARISON:? [facility], CT, CT ANGIO CHEST PE PROTOCOL, 05/18/2021, 0:24. ? FINDINGS:? Image quality:? Excellent.? ? Pulmonary arteries:? Pulmonary arteries are normal in size, and demonstrate no intraluminal filling defects to suggest central pulmonary embolism.? ? Lungs and pleura:? There is scattered opacity in the lungs most pronounced in the upper lobes.? This is minimally increased compared to 2021. Several areas are stable.? There are a few pulmonary cysts.? No pleural effusions or pneumothorax.? Central and peripheral airways are patent.? ? Mediastinum:? Heart size is normal, without pericardial effusion.? No mediastinal or hilar adenopathy.? Thoracic aorta is normal in caliber and enhancement.? Esophagus is normal in caliber, without hiatal hernia.? ? Bones and chest wall:? No suspicious bony lesions.? Ribs and thoracic spine appear intact throughout.? Thyroid gland is unchanged.? Possible subcentimeter right thyroid nodule.? No axillary or supraclavicular adenopathy.? ? Abdomen:? Visualized upper abdominal solid organs appear normal in the early arterial phase of enhancement.? Post cholecystectomy.? Left adrenal nodule measuring 1.2 cm, (), unchanged.? This measures less than 10 Hounsfield units and is consist ent with a benign adenoma.? ? IMPRESSION:? 1. No pulmonary embolism. ? 2. Mild patchy airspace opacity which is slightly increased compared to 202. This could represent an infectious/inflammatory etiology.? ? 3. No pleural effusion. ? 4. Small left benign adrenal adenoma. ? ? ? Dictated by: Ladarius Huntley M.D. on 06/12/2022 at 15:00 ? ? Approved by: Ladarius Huntley M.D. on 06/12/2022 at 15:07 ? MDM Narrative Medical decision making narrative: Patient is had significant improvement in symptoms with above-stated therapies. Heart rate down into the 90s, respirations 12, no increased work of breathing, hypoxemia. Advanced imaging reassuring and no evidence of central PE or abdominal infectious process. Patient appropriate for discharge, extensive discussions regarding return precautions and questions answered to her apparent satisfaction Discharge Plan Departure Patient Disposition: Home Clinical Impression: Pneumonia Instructions: DI for Pneumonia -- Adult Activity Restrictions/Additional Instructions: *You have been diagnosed with [community-acquired pneumonia] *What to do: *Please continue to take your regular medications as directed. [x ] New medication prescriptions sent to your pharmacy: [ [facility]] [ ] New medication written as a paper prescription [ ] No new medications given *Please follow up with your primary care provider in 2-3 days, call for an appointment. Let them know you were seen in the Emergency Department and that we ask that you be seen in follow up. We will electronically transmit a record of today's note if your PCP is in our system *If you do not have a primary care provider please contact the [facility] Resource line at [phone]. They will ask some questions about your medical history and help get you set up with a doctor in the community. *Return to Emergency Department if you should have any new, worsening or concer bri symptoms, such as [fever greater than 101 F, shaking chills, worsening pain, persistent vomiting or other bothersome symptoms] Prescriptions: New amoxicillin 500 mg capsule 1,000 mg PO Q8H 5 Days Qty: 30 0RF Referrals: Asuncion Schmitz MD [Primary Care Provider] - Stand Alone Forms: Work Release Note
[2022-06-12 12:10] LABS: Add Manual Diff / Slide Review NO; Basophils Absolute Auto 0 /uL (0-100); Basophils Percent Auto 0.2 % (0-2); Eosinophils Absolute Auto 0 /uL (0-450); Hematocrit 34.7 % (36-46); Hemoglobin 11.8 g/dL (12.0-16.0); Lymphocytes Absolute Auto 1700 /uL (1100-4500); Lymphocytes Percent Auto 11.8 % (25-40); Mean Corpuscular HGB Conc 33.9 % (30-36); Mean Corpuscular Hemoglobin 26.4 PG (26-34); Mean Corpuscular Volume 77.8 fL (80-100); Monocytes Absolute Auto 700 /uL (0-900); Monocytes Percent Auto 4.8 % (3-14); Neutrophils Absolute Auto 12100 /uL (1500-7000); Neutrophils Percent Auto 83.2 % (50-75); Platelet Count 300 X10^3/uL (150-400); Red Blood Cell Count 4.46 X10^6/uL (4.0-5.2); Red Cell Distribution Width 14.5 % (11.6-14.8); White Blood Cell Count 14.5 X10^3/uL (4.5-11.0)
[2022-06-12 12:28] LABS: Lactate (Lactic Acid) 0.8 mmol/L (0.7-2.1)
[2022-06-12 12:29] LABS: Alanine Aminotransferase 20 IU/L (<35); Albumin 3.6 g/dL (3.5-5.0); Albumin Globulin Ratio 0.7 (1.0-2.8); Alkaline Phosphatase 120 U/L (38-126); Aspartate Aminotransferase 21 IU/L (14-36); BUN Creatinine Ratio 14.5 (6-22); Bilirubin Total 0.6 mg/dL (0.2-1.3); Blood Urea Nitrogen 16 mg/dL (7-17); Calcium 8.5 mg/dL (8.4-10.2); Carbon Dioxide 21 mmol/L (22-32); Chloride 105 mmol/L (98-107); Estimated Glomerular Filt Rate > 60 mL/min (>60); Globulin 4.9 g/dL (1.7-4.1); Glucose 101 mg/dL (70-100); HEMOLYSIS < 15 (0-50); Lipase 198 U/L (23-300); Potassium 3.9 mmol/L (3.4-5.1); Sodium 135 mmol/L (137-145); Total Protein 8.5 g/dL (6.3-8.2)
[2022-06-12] MEDS: KETOROLAC 30 MG/ML VIAL 15 MG IV (12:29)
[2022-06-12] MEDS: SODIUM CHLORIDE 0.9% 1,973.13 ML 657.71 ML IV (12:33)
[2022-06-12] MEDS: cefTRIAXone 2,000 MG in SODIUM CHLORIDE 0.9% 100 ML 200 MG IV (12:34)
[2022-06-12 12:46] LABS: Procalcitonin 0.34 ng/mL (<0.5)
[2022-06-12 13:03] LABS: Influenza A - CEPHEID Flu A NEGATIVE (NEGATIVE); Influenza B - CEPHEID Flu B NEGATIVE (NEGATIVE); Respiratory Syncytial Virus Negative (Negative)
[2022-06-12 14:02] LABS: COVID-19 CEPHEID 4-PLEX PCR Negative (Negative)
--- NOTE | 2022-06-12 14:53 | DI.CT.S_ITS ---
PROCEDURE: CT ABDOMEN PELVIS W CON INDICATIONS: sepsis, critical dimer, right flank pain TECHNIQUE: After the administration of IV contrast, axial sections were acquired from the lung bases to the pubic symphysis. Coronal and sagittal reformats were performed. For radiation dose reduction, the following was used: automated exposure control, adjustment of mA and/or kV according to patient size. COMPARISON: None. FINDINGS: Image quality: Excellent. Lung bases: No pleural effusion. Small pulmonary cysts. Heart: No significant findings. ABDOMEN: Liver: No focal lesion. Gallbladder: Absent. Biliary ducts: Unremarkable. Pancreas: Unremarkable. Spleen: Unremarkable. Adrenal Glands: Small benign left adrenal adenoma is unchanged. Kidneys and Ureters: No hydronephrosis. Stomach and Bowel: Stomach, small bowel loops, and colon are unremarkable. Diverticulosis. The appendix is not dilated. Peritoneum: No abnormal intraperitoneal fluid. No free air. Ventral Wall: Small fat containing umbilical hernia. Abdominal Nodes: No retroperitoneal or mesenteric adenopathy by size criteria. Vessels: Aorta and inferior vena cava are normal in size. PELVIS: Pelvic Organs: Anteverted uterus. Bladder: Unremarkable. Pelvic Nodes: No enlarged lymph nodes. Miscellaneous: No inguinal hernias are seen. Bones: No suspicious lesion. IMPRESSION: 1. No acute inflammatory process is identified. Normal appendix. Diverticulosis. No diverticulitis. No free fluid. 2. Small left benign adrenal adenoma. Dictated by: Ladarius Huntley M.D. on 06/12/2022 at 15:12 Approved by: Ladarius Huntley M.D. on 06/12/2022 at 15:21
[2022-06-12 14:59] LABS: Bacteria Urine None Seen; Culture Indicated Urine Cult Not Indicated; RBC Urine 0-1/HPF (0-5/HPF); Squamous Epithelial Cell Urine 0-1 /HPF (0-5/HPF); WBC Urine 0-1/HPF (0-5/HPF)
--- NOTE | 2022-06-12 15:14 | DI.CT.S_ITS ---
PROCEDURE: CT ANGIO CHEST PE PROTOCOL INDICATIONS: chest pain, SOB, sepsis, critical Dimer TECHNIQUE: After the administration of intravenous contrast, 2 mm thick sections acquired from the pulmonary apices to the posterior costophrenic angles. 3-dimensional maximum intensity projection (MIP) coronal and sagittal reformats were then acquired through the thorax. For radiation dose reduction, the following was used: automated exposure control, adjustment of mA and/or kV according to patient size. COMPARISON: [facility], CT, CT ANGIO CHEST PE PROTOCOL, 05/18/2021, 0:24. FINDINGS: Image quality: Excellent. Pulmonary arteries: Pulmonary arteries are normal in size, and demonstrate no intraluminal filling defects to suggest central pulmonary embolism. Lungs and pleura: There is scattered opacity in the lungs most pronounced in the upper lobes. This is minimally increased compared to 202. Several areas are stable. There are a few pulmonary cysts. No pleural effusions or pneumothorax. Central and peripheral airways are patent. Mediastinum: Heart size is normal, without pericardial effusion. No mediastinal or hilar adenopathy. Thoracic aorta is normal in caliber and enhancement. Esophagus is normal in caliber, without hiatal hernia. Bones and chest wall: No suspicious bony lesions. Ribs and thoracic spine appear intact throughout. Thyroid gland is unchanged. Possible subcentimeter right thyroid nodule. No axillary or supraclavicular adenopathy. Abdomen: Visualized upper abdominal solid organs appear normal in the early arterial phase of enhancement. Post cholecystectomy. Left adrenal nodule measuring 1.2 cm, (4/127), unchanged. This measures less than 10 Hounsfield units and is consistent with a benign adenoma. IMPRESSION: 1. No pulmonary embolism. 2. Mild patchy airspace opacity which is slightly increased compared to 202. This could represent an infectious/inflammatory etiology. 3. No pleural effusion. 4. Small left benign adrenal adenoma. Dictated by: Ladarius Huntley M.D. on 06/12/2022 at 15:00 Approved by: Ladarius Huntley M.D. on 06/12/2022 at 15:07
== END 2022-06-12 16:40 | disposition home or self-care (01) ==
PROVIDERS: Emergency Provider Emergency Medicine; PCP Family Medicine
DX: J18.9 Pneumonia, unspecified organism (principal); R07.81 Pleurodynia; R07.9 Chest pain, unspecified; Z20.822 Contact with and (suspected) exposure to COVID-19
CPT/HCPCS: 0241U; 36415; 71045; 71275; 74177; 80053; 81003; 81015; 83605; 83690; 84145; 85025; 87040; 87086; 93005; 96365; 96375; 99284; J0696; J1885; Q9967

== ENCOUNTER → 2023-08-31 12:19 | Outpatient (CLI) | payer OTHER, SELFPAY ==
[2023-08-31 13:43] LABS: Influenza A - CEPHEID Flu A POSITIVE (NEGATIVE); Influenza B - CEPHEID Flu B NEGATIVE (NEGATIVE); Respiratory Syncytial Virus Negative (Negative)
[2023-08-31 13:46] LABS: COVID-19 CEPHEID 4-PLEX PCR Negative (Negative)
== END ==
PROVIDERS: PCP Family Medicine; Visit Provider Nurse Practitioner Family
DX: R05.1 Acute cough (principal)
CPT/HCPCS: 0241U

== ENCOUNTER → 2023-08-31 13:30 | Outpatient (CLI) | payer OTHER, SELFPAY ==
--- NOTE | 2023-08-31 13:33 | DI.RAD.S_ITS ---
PROCEDURE: XR CHEST 2V INDICATIONS: PAIN' TECHNIQUE: 2 views of the chest were acquired. COMPARISON: [facility], CR, XR CHEST 1V, 06/12/2022, 11:31. [facility], CR, XR CHEST 1V, 05/17/2021, 23:22. FINDINGS: Surgical changes and devices: Right upper quadrant surgical clips. Lungs and pleura: Lungs are clear. No pleural effusions or pneumothorax. Mediastinum: Mediastinal contours are normal. Heart size is normal. Bones and chest wall: No suspicious bony abnormalities. Soft tissues appear unremarkable. IMPRESSION: No acute cardiopulmonary abnormality is seen. Dictated by: Steven Bryan M.D. on 08/31/2023 at 14:31 Approved by: Steven Bryan M.D. on 08/31/2023 at 14:31
== END ==
PROVIDERS: PCP Family Medicine; Referring Provider Family Medicine; Visit Provider Family Medicine
DX: R05.1 Acute cough (principal); R52 Pain, unspecified
CPT/HCPCS: 0241U; 71046

== ENCOUNTER → 2023-09-07 17:44 | Outpatient (CLI) | payer OTHER, SELFPAY ==
--- NOTE | 2023-09-07 | DI.RAD.S_ITS ---
PROCEDURE: XR CHEST 2V INDICATIONS: PNEUMONIA TECHNIQUE: 2 views of the chest were acquired. COMPARISON: [facility], CR, XR CHEST 2V, 08/31/2023, 13:40. FINDINGS: Surgical changes and devices: Cholecystectomy clips. Lungs and pleura: Bilateral pulmonary opacities most severe in the right base. Linear opacity is present in the left base. Mediastinum: Mediastinal contours are normal. Heart size is normal. Bones and chest wall: No suspicious bony abnormalities. Soft tissues appear unremarkable. IMPRESSION: Bilateral pulmonary opacities most suspicious for pneumonia. Recommend interval follow up after appropriate therapy to document resolution. Dictated by: Vivi Menchaca M.D. on 09/08/2023 at 14:47 Approved by: Vivi Menchaca M.D. on 09/08/2023 at 14:47
== END ==
PROVIDERS: PCP Family Medicine; Referring Provider Family Medicine; Visit Provider Family Medicine
DX: J10.00 Influenza due to other identified influenza virus with unspecified type of pneumonia (principal)
CPT/HCPCS: 71046

== ENCOUNTER 2024-01-16 20:25 | Emergency (ER) | payer OTHER, SELFPAY ==
[2024-01-16 20:58] VITALS: BP 142/92; PULSE 81; RESP 16; TEMP 36.6; O2SAT 99; BMI 31.5
--- NOTE | 2024-01-16 23:20 | ED.WOUNDLAC ---
HPI - Wound/Laceration General Chief Complaint: Wound/Laceration Stated Complaint: Left pinkie injury Time Seen by Provider: 01/16/24 23:19 Source: patient and family Mode of arrival: Ambulatory History of Present Illness HPI narrative: 53-year-old female here for evaluation of a laceration to her left little finger. She states she cut it on a knife she was trying to make dinner. She did take some Tylenol and ibuprofen prior to arrival. Related Data Previous Rx's Medication Instructions Recorded benzonatate 100 mg capsule 200 mg (2 x 100 mg) PO BID PRN 08/31/23 cough #20 caps Allergies Allergy/AdvReac Type Severity Reaction Status Date / Time No Known Allergies Allergy Verified 08/31/23 12:17 Review of Systems Musculoskeletal Musculoskeletal: Reports system reviewed and no additional complaints, except as documented Integumentary/Breasts Skin/Breast: Reports system reviewed and no additional complaints, except as documented Neurologic Neurologic: Reports system reviewed and no additional complaints, except as documented Patient History Social History Smoking Status: Never smoker Smoking Status: Never smoker Substance Use Type: does not use Exam Initial Vital Signs Initial Vital Signs: Vital Signs Temperature 97.8 F 01/16/24 20:58 Pulse Rate 81 01/16/24 20:58 Respiratory Rate 16 01/16/24 20:58 Blood Pressure 142/92 H 01/16/24 20:58 Pulse Oximetry 99 01/16/24 20:58 Oxygen Delivery Method Room Air 01/16/24 20:58 Skin Other: 1 cm laceration of the volar aspect of the distal left little finger. Does not involve the nail bed. Procedures Laceration Repair Laceration 1: Site: other (Little finger) Side (If applicable): left Size (cm): 1 Description: flap Depth: simple, single layer Local Anesthetic: lidocaine 1% Amount of anesthesia used (mL): 2 Pre-repair: wound explored, irrigated extensively and deep structures intact Skin layer closed with: nylon Skin layer suture size: 4-0 Number of sutures: 5 Technique: simple, interrupted Course Orders Ordered: Discontinued Medications Bacitracin (Bacitracin Oint 0.9 Gm Pckt) 1 applic TOP NOW ONE Stop: 01/16/24 23:51 Last Admin: 01/17/24 00:07 Dose: 1 applic Documented By: JG Lidocaine HCl (Lidocaine 1% 20 Ml) 20 ml INJ INTRA-OP ONE Stop: 01/16/24 23:22 Last Admin: 01/17/24 00:07 Dose: 20 ml Documented By: NAVI Vital Signs Vital signs: Vital Signs - 8 hr 01/17/24 00:04 Temperature 98.7 F Pulse Rate 74 Respiratory Rate 20 Blood Pressure 137/77 Pulse Oximetry 98 Oxygen Delivery Method Room Air MDM - Wound/Laceration MDM Narrative Medical decision making narrative: Laceration does not involve the nail bed. It was a superficial laceration. No tendon injury. No foreign body. No signs of infection. Wound was closed as described above. Patient was given care instructions and return precautions. She expressed understanding and agreement with plan. Discharge Plan Departure Patient Disposition: Home Clinical Impression: Laceration Instructions: DI for Laceration Repair Activity Restrictions/Additional Instructions: The stitches do need to be removed in 7-10 days. Until then you can put topical antibiotic over the area and also cover with a bandage. You can wash your hands like normal. Return to the emergency department for new symptoms. Prescriptions: No Action benzonatate 100 mg capsule 200 mg PO BID PRN (Reason: cough) Qty: 20 0RF Referrals: Asuncion Schmitz MD [Primary Care Provider] - Stand Alone Forms: Patient Portal/API
[2024-01-17 00:04] VITALS: BP 137/77; PULSE 74; RESP 20; TEMP 37.1; O2SAT 98
[2024-01-17] MEDS: LIDOCAINE 1% 20 ML INJ (00:07)
[2024-01-17] MEDS: BACITRACIN OINT 0.9 GM PCKT 1 APPLIC TOP (00:07)
== END 2024-01-17 | disposition home or self-care (01) ==
PROVIDERS: Emergency Provider Emergency Medicine; PCP Family Medicine
DX: S61.217A Laceration without foreign body of left little finger without damage to nail, initial encounter (principal); W26.0XXA Contact with knife, initial encounter
CPT/HCPCS: 12001; 99283

== ENCOUNTER → 2024-07-22 16:39 | Outpatient (CLI) | payer OTHER, SELFPAY ==
--- NOTE | 2024-07-22 16:41 | DI.RAD.S_ITS ---
PROCEDURE: XR CHEST 2V INDICATIONS: COUGH TECHNIQUE: 2 views of the chest were acquired. COMPARISON: [facility], CR, XR CHEST 2V, 09/07/2023, 17:52. FINDINGS: Surgical changes and devices: Cholecystectomy clips. Lungs and pleura: Lungs are clear. No pleural effusions or pneumothorax. Mediastinum: Mediastinal contours are normal. Heart size is normal. Bones and chest wall: No suspicious bony abnormalities. Soft tissues appear unremarkable. IMPRESSION: No acute pulmonary process. Dictated by: Vivi Menchaca M.D. on 07/23/2024 at 16:11 Approved by: Vivi Mencahca M.D. on 07/23/2024 at 16:11
== END ==
LOC: RAD 16:40
PROVIDERS: PCP Family Medicine; Referring Provider Family Medicine; Visit Provider Family Medicine
DX: R05.3 Chronic cough (principal)
CPT/HCPCS: 71046